=== PATIENT | female | born 1975 | race Hispanic/Latino ===

== ENCOUNTER 2017-08-04 09:59 | Emergency (ER) | payer OTHER ==
[~2017-08-04] VITALS: Ht 170.2 cm; Wt 93.0 kg
[~2017-08-04 09:59] MED LIST: AMOXICILLIN500 M2 PO; BENADRYL25 M1 PO; CEFDINIR300 MG PO; FLEXERIL OR; NO MEDS; OB COMPLETE/DHA PO; PAROXETINE20 MG PO; STERAPRED5 MG PO; TIZANIDINE2 MG PO; ULTRAM50 M1 PO
[2017-08-04] MEDS ORDERED: DELTASONE20 MG PO (11:06)
[2017-08-04 11:12] VITALS: BP 132/73
== END 2017-08-04 11:15 | disposition home or self-care (01) | DRG 607 ==
LOC: ED 09:59
DX: L50.0 Allergic urticaria (principal); I10 Essential (primary) hypertension

== ENCOUNTER 2018-08-20 04:08 | Emergency (ER) | payer OTHER ==
[~2018-08-20] VITALS: Ht 170.2 cm; Wt 92.0 kg
[~2018-08-20 04:08] MED LIST changes: +DELTASONE20 MG PO
[2018-08-20] MEDS ORDERED: TRAMADOL HCL50 MG PO (04:32)
[2018-08-20 04:35] VITALS: BP 129/84
== END 2018-08-20 04:44 | disposition home or self-care (01) | DRG 159 ==
LOC: ED 04:08
DX: K04.7 Periapical abscess without sinus (principal); K08.89 Other specified disorders of teeth and supporting structures; R22.0 Localized swelling, mass and lump, head; R68.84 Jaw pain

== ENCOUNTER 2018-09-29 10:10 | Emergency (ER) | payer OTHER ==
[~2018-09-29] VITALS: Ht 170.2 cm; Wt 84.0 kg
[~2018-09-29 10:10] MED LIST changes: +TRAMADOL HCL50 MG PO
[2018-09-29] MEDS ORDERED: LISINOPRIL20 MG PO (10:24)
[2018-09-29 10:58] LABS: HEMATOCRIT 42.4 % (37.0-47.0); HEMOGLOBIN 13.8 g/dl (12.0-16.0); IMMATURE GRANULOCYTES 0.3 % (0.0-5.0); MEAN CELL VOLUME 83.8 fL CALC (80.0-100.0); MEAN CORPUSCULAR HGB 27.3 pG CALC (26.0-32.0); MEAN CORPUSCULAR HGB CONC 32.5 g/L CALC (32.0-36.0); NEUT# 5.94 thou/uL (2.00-7.15); RED BLOOD COUNT 5.06 mill/uL (4.20-5.60); RED CELL DISTRI WIDTH 13.9 % (11.5-15.5)
[2018-09-29 11:20] LABS: ALBUMIN 4.9 g/dL (3.2-5.0); ALKALINE PHOSPHATASE 84 u/l (38-126); ANION GAP 15 (6-22 (CALC)); BUN 17 mg/dL (7-17); BUN/CREATININE RATIO 23 (12-20 (CALC)); CARBON DIOXIDE 21 mmol/l (22-30); CHLORIDE 107 mmol/l (95-108); CREATININE 0.7 mg/dL (0.5-1.0); GFR > 60 ML/MIN (>=60 (CALC)); GFR FOR AFR.AMER. > 60 ML/MIN (>=60 (CALC)); LIPASE 96 u/l (23-300); POTASSIUM 4.2 mmol/l (3.5-5.1); SGOT/AST 24 u/l (14-36); SODIUM 138 mmol/l (137-146); TOTAL PROTEIN 8.3 g/dL (6.3-8.2)
[2018-09-29 11:24] LABS: BILIRUBIN, TOTAL 0.6 mg/dL (0.0-1.4)
[2018-09-29] MEDS ORDERED: PROTONIX40 M2 PO (12:08)
[2018-09-29 12:16] VITALS: BP 122/61
== END 2018-09-29 12:20 | disposition home or self-care (01) | DRG 313 ==
LOC: ED 10:10
PROVIDERS: Emergency Medicine
DX: R07.9 Chest pain, unspecified (principal); I10 Essential (primary) hypertension; R06.02 Shortness of breath; R11.0 Nausea; R53.1 Weakness